=== PATIENT | male | born 1980 | race Two or more races ===

== ENCOUNTER 2023-12-01 22:29 | Emergency (ER) | payer SELFPAY ==
[~2023-12-01] VITALS: Ht 170.2 cm; Wt 84.0 kg
[2023-12-02] MEDS ORDERED: CYCL-837 PO (00:14)
[2023-12-02] MEDS ORDERED: ACET500T58 PO (00:14)
[2023-12-02] MEDS: ACETAMINOPHEN 325 MG TAB PO ONE (00:15)
[2023-12-02 00:55] VITALS: BP 123/79; PULSE 85; RESP 16; TEMP 98.7; O2SAT 95
== END 2023-12-02 01:50 | disposition home or self-care (01) ==
LOC: ER 22:29 → EDBD 22:29 → ER 12-02 01:05
DX: S63.591A Other specified sprain of right wrist, initial encounter (principal); S93.492A Sprain of other ligament of left ankle, initial encounter; S90.32XA Contusion of left foot, initial encounter; S09.8XXA Other specified injuries of head, initial encounter; Z98.890 Other specified postprocedural states; Z79.899 Other long term (current) drug therapy; V58.5XXA Driver of pick-up truck or van injured in noncollision transport accident in traffic accident, initial encounter; Y93.I9 Activity, other involving external motion; Y92.410 Unspecified street and highway as the place of occurrence of the external cause; Y99.8 Other external cause status
CPT/HCPCS: 70450; 72125; 73110; 73610; 73630